=== PATIENT | male | born 1960 | race Two or more races ===

== ENCOUNTER 2016-10-18 23:17 | Emergency (ER) | payer OTHER ==
[~2016-10-18] VITALS: Ht 167.6 cm; Wt 61.2 kg
[2016-10-18 23:45] VITALS: BP 127/78
[2016-10-18] MEDS ORDERED: Nitroglycerin 2% oint pkt TOPIC ONE (23:45)
[2016-10-18 23:56] LABS: BASOPHILS % (AUTO) 0.9 % (0.0-2.0); EOSINOPHILS % (AUTO) 2.1 % (0.0-3.0); LYMPHOCYTES % (AUTO) 19.6 % (20.0-45.0); MEAN CORPUSCULAR HEMOGLOBIN 31.6 PG (27.0-31.0); MEAN CORPUSCULAR HGB CONC 33.7 G/DL (32.0-36.0); MEAN CORPUSCULAR VOLUME 94 FL (80-99); MEAN PLATELET VOLUME 7.7 FL (6.5-10.1); MONOCYTES % (AUTO) 7.5 % (1.0-10.0); NEUTROPHILS % (AUTO) 69.9 % (45.0-75.0); PLATELET COUNT 182 K/UL (150-450); RED BLOOD COUNT 4.79 M/UL (4.70-6.10); RED CELL DISTRIBUTION WIDTH 12.5 % (11.6-14.8); WHITE BLOOD COUNT 7.2 K/UL (4.8-10.8)
[2016-10-19] MEDS ORDERED: Mylanta II UD 30ml ORAL ONE
[2016-10-19] MEDS ORDERED: Lidocaine 2% Visc 15ml soln ORAL ONE
[2016-10-19 00:09] LABS: TROPONIN I < 0.30 ng/mL (<=0.30)
[2016-10-19 00:10] LABS: ALANINE AMINOTRANSFERASE 24 U/L (3-41); ALBUMIN/GLOBULIN RATIO 1.5 (1.0-2.7); ANION GAP 17 (5-15); ASPARTATE AMINO TRANSFERASE 20 U/L (5-40); CARBON DIOXIDE 23 mEQ/L (20-30); CHLORIDE 98 mEQ/L (98-107); CREATININE 0.8 mg/dL (0.7-1.2); GLOMERULAR FILTRATION RATE > 60 mL/min (>60); HEMOLYSIS 7; SODIUM 138 mEQ/L (135-145); TOTAL PROTEIN 6.7 g/dL (6.6-8.7)
[2016-10-19 00:21] LABS: INR 1.1 (0.9-1.1); PROTHROMBIN TIME 10.8 SEC (9.30-11.50)
[2016-10-19 00:40] LABS: APPEARANCE,URINE CLEAR; KETONES,URINE NEGATIVE (NEGATIVE); LEUKOCYTE ESTERASE ,URINE NEGATIVE (NEGATIVE); NITRITE,URINE NEGATIVE (NEGATIVE); PH,URINE 6 (4.5-8.0); PROTEIN,URINE NEGATIVE (NEGATIVE); UROBILINOGEN,URINE NORMAL MG/DL (0.0-1.0)
[2016-10-19] MEDS ORDERED: Famotidine 20 MG/ 2ML VIAL IVP ONE (01:15)
[2016-10-19 01:31] LABS: RBC,URINE 0-2 /HPF (0 - 0); SQUAMOUS EPITHELIAL CELL,UR OCCASIONAL /LPF (NONE/OCC); WBC,URINE 0-2 /HPF (0 - 0)
[2016-10-19 01:57] VITALS: BP 107/73
--- NOTE | 2016-10-19 03:02 | Emergency Room Report ---
History of Present Illness General Chief Complaint: Chest Pain Source: Patient Present Illness HPI The patient presents with chest pain. It's intermittent and severe. When paramedics arrived he states that he was somewhat improved. They gave him aspirin and he was pain-free at that time. On examination he is starting to have a severe episode of pain come on again. Radiates to his left arm. He states at times it gets to 8-9/10 burning and pressure. Some associated nausea. It is not exertional. No cardiac risk factors aside from smoking. No fever, cough, vomiting, change in bowels, melena, dysuria, anxiety. Some alcohol consumption, not daily. Allergies: Coded Allergies: ACETAMINOPHEN (Verified Allergy, Unknown, 10/18/16) Patient History Past Medical History: see triage record Social History: Reports: alcohol use, smoking Social History Narrative self employed Reviewed Nursing Documentation: PMH: Agreed, PSxH: Agreed Nursing Documentation-PM Past Medical History: No Stated History Review of Systems All Other Systems: negative except mentioned in HPI Physical Exam Vital Signs Date Time Temp Pulse Resp B/P Pulse Ox O2 Delivery O2 Flow Rate FiO2 10/18/16 23:20 98.6 64 18 134/75 98 Room Air Sp02 EP Interpretation: reviewed, normal General Appearance: well appearing, no apparent distress, GCS 15 Head: normocephalic Eyes: bilateral eye PERRL, bilateral eye normal inspection ENT: moist mucus membranes Neck: supple Respiratory: chest non-tender, lungs clear, normal breath sounds Cardiovascular #1: regular rate, rhythm Cardiovascular #2: 2+ radial (R) Gastrointestinal: normal inspection, normal bowel sounds, non tender, no mass, non-distended Musculoskeletal: back normal, gait/station normal, normal range of motion Neurologic: alert, oriented x3, grossly normal Psychiatric: mood/affect normal Skin: normal inspection, warm/dry Medical Decision Making Diagnostic Impression: Primary Impression: Chest pain Qualified Codes: R07.89 - Other chest pain ER Course Patient with few risk factors with atypical chest pain. However, ACS and AMI need to be excluded. Also consider GERD, gastritis, spasm amongst others. No evidence for PE. Evaluation with labs, EKG, CXR. Treatment with GI cocktail, pepcid and zofran. Need for cardiac observation. EKG normal, CXR also. Labs with negative troponin. No cardiac risk at this time. Patient pain free after GI cocktail. Discussed need for workup and possible evaluation for H. pylori Patient stable for outpatient observation and treatment. Laboratory Tests Test 10/18/16 23:40 10/19/16 00:30 White Blood Count 7.2 K/UL (4.8-10.8) Red Blood Count 4.79 M/UL (4.70-6.10) Hemoglobin 15.2 G/DL (14.2-18.0) Hematocrit 44.9 % (42.0-52.0) Mean Corpuscular Volume 94 FL (80-99) Mean Corpuscular Hemoglobin 31.6 PG (27.0-31.0) H Mean Corpuscular Hemoglobin Concent 33.7 G/DL (32.0-36.0) Red Cell Distribution Width 12.5 % (11.6-14.8) Platelet Count 182 K/UL (150-450) Mean Platelet Volume 7.7 FL (6.5-10.1) Neutrophils (%) (Auto) 69.9 % (45.0-75.0) Lymphocytes (%) (Auto) 19.6 % (20.0-45.0) L Monocytes (%) (Auto) 7.5 % (1.0-10.0) Eosinophils (%) (Auto) 2.1 % (0.0-3.0) Basophils (%) (Auto) 0.9 % (0.0-2.0) Prothrombin Time 10.8 SEC (9.30-11.50) Prothrombin Time INR 1.1 (0.9-1.1) D-Dimer 446 ng/mL (<500) Sodium Level 138 mEQ/L (135-145) Potassium Level 4.0 mEQ/L (3.4-4.9) Chloride Level 98 mEQ/L (98-107) Carbon Dioxide Level 23 mEQ/L (20-30) Anion Gap 17 (5-15) H Blood Urea Nitrogen 15 mg/dL (7-23) Creatinine 0.8 mg/dL (0.7-1.2) Estimate Glomerular Filtration Rate > 60 mL/min (>60) Glucose Level 123 mg/dL (74-106) H Calcium Level 9.0 mg/dL (8.6-10.2) Total Bilirubin 0.2 mg/dL (0.0-1.2) Aspartate Amino Transferase (AST) 20 U/L (5-40) Alanine Aminotransferase (ALT) 24 U/L (3-41) Alkaline Phosphatase 70 U/L (40-129) Total Creatine Kinase 47 U/L (38-174) Troponin I < 0.30 ng/mL (<=0.30) Pro-B-Type Natriuretic Peptide 32 pg/mL (0-125) Total Protein 6.7 g/dL (6.6-8.7) Albumin 4.1 g/dL (3.5-5.2) Globulin 2.6 g/dL Albumin/Globulin Ratio 1.5 (1.0-2.7) Urine Color Pale yellow Urine Appearance Clear Urine pH 6 (4.5-8.0) Urine Specific [place] 1.015 (1.005-1.035) Urine Protein Negative (NEGATIVE) Urine Glucose (UA) Negative (NEGATIVE) Urine Ketones Negative (NEGATIVE) Urine Occult Blood 1+ (NEGATIVE) H Urine Nitrite Negative (NEGATIVE) Urine Bilirubin Negative (NEGATIVE) Urine Urobilinogen Normal MG/DL (0.0-1.0) Urine Leukocyte Esterase Negative (NEGATIVE) Urine RBC 0-2 /HPF (0 - 0) H Urine WBC 0-2 /HPF (0 - 0) Urine Squamous Epithelial Cells Occasional /LPF Urine Bacteria None /HPF (NONE) EKG Diagnostic Results Rate: normal Rhythm: NSR ST Segments: no acute changes Rhythm Strip Diag. Results EP Interpretation: yes Rhythm: NSR, no PVC's, no ectopy Chest X-Ray Diagnostic Results EP Interpretation: Yes Findings: no consolidation, no effusion, no pneumothorax, other - increased hilae Number of Views: 1 Last Vital Signs Date Time Temp Pulse Resp B/P Pulse Ox O2 Delivery O2 Flow Rate FiO2 10/19/16 04:10 98.6 77 18 96/64 95 Room Air Status: improved Disposition: HOME, SELF-CARE Condition: Improved Scripts Tramadol Hcl* (ULTRAM*) 50 Mg Tablet 50 MG ORAL Q6H Y for For Pain, #8 TAB 0 Refills Prov: Milo Alexis M.D. 10/19/16 Famotidine (PEPCID) 20 Mg Tablet 20 MG ORAL DAILY, #30 TAB 0 Refills Prov: Milo Alexis M.D. 10/19/16 Referrals: [facility]ERR[facility] (PCP) Milo Alexis M.D. Oct 19, 2016 03:02
[2016-10-19] MEDS ORDERED: PEPCID20 MG ORAL (03:08)
[2016-10-19] MEDS ORDERED: TRAMADOL HCL50 MG ORAL (03:08)
[2016-10-19 04:00] VITALS: BP 96/64
[2016-10-19 04:10] VITALS: BP 96/64
--- NOTE | 2016-10-19 11:58 | Diagnostic Imaging Report ---
Indication: Chest pain Technique: One view of the chest Comparison: none Findings: Lungs and pleural spaces are clear. Heart size is normal. There is a right-sided aortic arch Impression: No acute process Incidental finding right-sided aortic arch This agrees with the preliminary interpretation provided by the emergency room physician
--- NOTE | 2016-10-23 11:40 | Cardiology Report ---
APPROVED REPORT EKG Measurement Heart [id number] Normal sinus rhythm Normal ECG
== END 2016-10-19 04:10 | disposition home or self-care (01) ==
LOC: EDBD 23:17 → EMR 23:44
DX: R07.9 Chest pain, unspecified (principal); Z88.6 Allergy status to analgesic agent; M79.602 Pain in left arm
CPT/HCPCS: 36415; 71010; 80053; 81003; 82550; 83880; 84484; 85025; 85379; 85610; 93005; 96374; 99284; S0028